=== PATIENT | male | born 1995 | race African-American/Black ===

== ENCOUNTER 2019-08-05 00:05 | Emergency (ER) | payer OTHER, SELFPAY | END 2019-08-05 00:45 | disposition home or self-care (01) | LOC: ERS 00:05 | DX: S41.012A Laceration without foreign body of left shoulder, initial encounter (principal); S11.91XA Laceration without foreign body of unspecified part of neck, initial encounter; S41.112A Laceration without foreign body of left upper arm, initial encounter; V27.4XXA Motorcycle driver injured in collision with fixed or stationary object in traffic accident, initial encounter | CPT/HCPCS: 99282 ==